=== PATIENT | male | born 1985 | race Caucasian/White ===

== ENCOUNTER 2019-06-11 16:23 | Emergency (ER) | payer SELFPAY ==
[2019-06-11] MEDS ORDERED: ONDANSETRON ODT 8 MG TAB SL ONE (17:38)
[2019-06-11] MEDS ORDERED: ALUM & MAG HYDROX-SIMETHICONE 30 ML, LIDOCAINE VISCOUS 2% 15 ML PO ONE ×2 (17:38)
[2019-06-11 18:03] VITALS: TEMP 98.4; O2SAT 97
[2019-06-11] MEDS ORDERED: LIDOCAINE HCL 2% (MOUTH-THROAT) 15 ML UD ONE (18:14)
[2019-06-11] MEDS ORDERED: ALUM & MAG HYDROX-SIMETHICONE 30 ML UD ONE (18:14)
--- NOTE | 2019-06-11 18:42 | RAD ---
EXAM DESCRIPTION: Abdomen Series CLINICAL HISTORY: 33 years Male chest pain, vomit some blood COMPARISON: None TECHNIQUE: Four images of the chest and abdomen were obtained. FINDINGS: Gas is seen throughout the bowel. Bowel is normal in caliber. Moderate constipation right colon. No intraperitoneal free air. Cardiac size is within normal limits. No infiltrates or effusions seen. No consolidation. No pneumothorax. IMPRESSION: Nonspecific bowel gas pattern. No bowel obstruction or perforation. No active cardiopulmonary disease. 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
--- NOTE | 2019-06-11 19:13 | ED.PDOC ---
History of Present Illness - General Chief Complaint: GI Problem Stated Complaint: Nausea, vomiting, weakness Time Seen by Provider: 06/11/19 17:32 Source: patient Exam Limitations: no limitations - History of Present Illness Initial Comments: the patient is a 33-year-old male presenting to the emergency room secondary to symptoms consistent with esophagitis. The patient has been having to sleep upright in a chair to reduce the wash back. Last night he started having some vomiting with some blood tinge. He has continued to have some central chest and back tightness today along with continued acid wash back. No real abdominal pain. He has had this problem for quite some time. He does also have some obesity issues and some sleep apnea. He has been poorly compliant with his sleep apnea machine. No fever. No coronary artery disease. Timing/Duration: unsure Severity: moderate Improving Factors: nothing Worsening Factors: nothing Associated Symptoms: chest pain, loss of appetite, nausea/vomiting Allergies/Adverse Reactions: Allergies Sulfa Antibiotics Adverse Reaction (Verified 06/11/19 17:45) Other Light-headed and dizziness Home Medications: Ambulatory Orders Esomeprazole Magnesium [Nexium] 40 mg PO DAILY #30 cap 06/11/19 Famotidine 20 mg PO BID #60 tab 06/11/19 Ondansetron Odt [Zofran ODT] 4 mg PO Q8HR PRN #5 tab 06/11/19 Sucralfate Tab [Carafate Tab] 1 gm PO QID #120 tab 06/11/19 Review of Systems - Review of Systems Constitutional: States: no symptoms reported EENTM: States: no symptoms reported Respiratory: States: no symptoms reported Cardiology: States: no symptoms reported Gastrointestinal/Abdominal: States: nausea, vomiting Genitourinary: States: no symptoms reported Musculoskeletal: States: no symptoms reported Skin: States: no symptoms reported Neurological: States: no symptoms reported Endocrine: States: no symptoms reported All other Systems: No Change from Baseline Past Medical History (General) - Patient Medical History Hx Stroke: No Hx Congestive Heart Failure: No Hx Diabetes: No Hx MRSA: No - Vaccination History Hx Tetanus, Diphtheria Vaccination: No Hx Influenza Vaccination: No Hx Pneumococcal Vaccination: No - Social History Hx Tobacco Use: Yes Hx Alcohol Use: Yes - Social use Hx Substance Use: No Family Medical History - Family History Father Family History: No Known Living Status: Still Living Physical Exam - Physical Exam General Appearance: Alert, No apparent distress Eye Exam: bilateral normal Ears, Nose, Throat: hearing grossly normal, normal ENT inspection Neck: full range of motion, supple Respiratory: lungs clear, normal breath sounds, no respiratory distress, no accessory muscle use Cardiovascular/Chest: normal peripheral pulses, regular rate, rhythm, no edema Peripheral Pulses: radial,right: 2+, radial,left: 2+, dorsalis pedis,right: 2+, dorsalis pedis,left: 2+ Gastrointestinal/Abdominal: non tender, soft Rectal Exam: deferred Back Exam: no CVA tenderness, no vertebral tenderness Extremity: normal range of motion, non-tender, normal inspection, no pedal edema, normal capillary refill 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 The patient is going to be placed on Pepcid, Carafate and Nexium for extended course. He will also be written for some Zofran to control any vomiting. He needs to lose weight and stop smoking. Dietary precautions were also given. He also needs to rig supervisor some [id number] Maalox or Mylanta for as needed use. EKG, xray and lab work are reassuring. follow-up with primary care doctor in a week or 2. ER warnings were given. melisa sethi [id number] - Results/Orders Results/Orders: Vital Signs - 24 hr 06/11/19 17:32 Temperature 98.4 F Pulse Rate [ 106 H Left Radial] Respiratory 22 Rate Blood Pressure 146/103 [Right Arm] O2 Sat by Pulse 97 Oximetry 06/11/19 17:45 EKG STAT normal sinus rhythm 96 bpm. Oral axis. Possibly early right bundle branch block. Otherwise normal R-wave progression. No ST segment or T-wave changes indicative of acute ischemia. Normal QT interval. Mild left atrial dilation. Acute abdominal series showed no definitive acute pathology. He does have mild constipation. See report for details. Laboratory Results - last 24 hr 06/11/19 06/11/19 06/11/19 17:50 17:50 17:50 WBC 12.2 H RBC 5.63 Hgb 16.8 Hct 49.2 MCV 87.3 MCH 29.9 MCHC 34.2 RDW 13.1 Plt Count 159 MPV 10.1 Absolute Neuts (auto) 9.30 H Absolute Lymphs (auto) 1.80 Absolute Monos (auto) 0.90 H Absolute Eos (auto) 0.10 Absolute Basos (auto) 0.00 Neutrophils % 76.4 Lymphocytes % 14.6 L Monocytes % 7.6 Eosinophils % 1.0 Basophils % 0.4 PT 9.9 INR 0.99 PTT (SP) 26.5 Sodium 139 Potassium 3.8 Chloride 106 Carbon Dioxide 26 Anion Gap 10.8 L BUN 20 H Creatinine 1.01 BUN/Creatinine Ratio 19.8 Random Glucose 96 Serum Osmolality 280.0 Calcium 9.2 Magnesium 1.9 Total Bilirubin 0.8 AST 46 H ALT 77 H Alkaline Phosphatase 63 Creatine Kinase 422 H* CK-MB (CK-2) 3.6 CK-MB (CK-2) % Not Reportable Troponin I < 0.02 B-Natriuretic Peptide < 5.0 Serum Total Protein 7.9 Albumin 4.6 Globulin 3.3 Albumin/Globulin Ratio 1.4 Amylase 53 Lipase 32 TSH 0.65 Departure - Departure Clinical Impression: Esophagitis Disposition: Discharge to Home or Self Care Condition: Fair Departure Forms: ED Discharge - Pt. Copy, Patient Portal Self Enrollment Instructions: DI for Gastritis, Thomas's Esophagus, Acid Reflux (Gastroesophageal Reflux Disease) in Adults Diet: bland diet Activity: increase activity as tolerated Prescriptions: Ondansetron Odt [Zofran ODT] 4 mg PO Q8HR PRN #5 tab PRN Reason: Nausea--Moderate Esomeprazole Magnesium [Nexium] 40 mg PO DAILY #30 cap Famotidine 20 mg PO BID #60 tab Sucralfate Tab [Carafate Tab] 1 gm PO QID #120 tab Home Medications: Ambulatory Orders Esomeprazole Magnesium [Nexium] 40 mg PO DAILY #30 cap 06/11/19 Famotidine 20 mg PO BID #60 tab 06/11/19 Ondansetron Odt [Zofran ODT] 4 mg PO Q8HR PRN #5 tab 06/11/19 Sucralfate Tab [Carafate Tab] 1 gm PO QID #120 tab 06/11/19 Additional Instructions: the patient is a 33-year-old male presenting with what appears to be significant long-standing esophagitis. The patient is going to be placed on Pepcid, Carafate and Nexium for extended course. He will also be written for some Zofran to control any vomiting. He needs to lose weight and stop smoking. Dietary precautions were also given. He also needs to rig supervisor some [id number] Maalox or Mylanta for as needed use. EKG, xray and lab work are reassuring. follow-up with primary care doctor in a week or 2. ER warnings were given.
[2019-06-11 19:35] VITALS: BP 111/72
== END 2019-06-11 19:28 | disposition home or self-care (01) ==
LOC: ER 16:23
DX: K20.9 Esophagitis, unspecified (principal); R11.2 Nausea with vomiting, unspecified; R07.9 Chest pain, unspecified; E66.9 Obesity, unspecified; F17.200 Nicotine dependence, unspecified, uncomplicated; Z88.2 Allergy status to sulfonamides; Z68.42 Body mass index [BMI] 45.0-49.9, adult

== ENCOUNTER 2019-07-14 17:09 | Emergency (ER) | payer SELFPAY ==
[2019-07-14 18:34] VITALS: TEMP 96
--- NOTE | 2019-07-14 18:53 | ED.PDOC ---
History of Present Illness - General Chief Complaint: Syncope/Near Syncope Stated Complaint: fainted earlier today,dizziness Time Seen by Provider: 07/14/19 18:45 Source: patient, RN notes reviewed, Vital Signs reviewed Exam Limitations: no limitations - History of Present Illness Initial Comments: Pt is a 33 yo male that presents after syncopal episode. States he has had acid reflux all day and while at work at 1530 today he was dry heaving and passed out. Denies hitting head or any injury. Has felt fatigued since the episode and continues to have burning epigastic pain. Reports chronic acid reflux and takes PPI daily at home for this. Denies fever, cough, CP, SOB. Allergies/Adverse Reactions: Allergies Sulfa Antibiotics Adverse Reaction (Verified 06/11/19 17:45) Other Light-headed and dizziness Home Medications: Ambulatory Orders Esomeprazole Magnesium [Nexium] 40 mg PO DAILY #30 cap 06/11/19 Famotidine 20 mg PO BID #60 tab 06/11/19 Ondansetron Odt [Zofran ODT] 4 mg PO Q8HR PRN #5 tab 06/11/19 Sucralfate Tab [Carafate Tab] 1 gm PO QID #120 tab 06/11/19 Review of Systems - Review of Systems Constitutional: Denies: chills, fever, weakness EENTM: Denies: ear pain, nose congestion, throat pain Respiratory: Denies: cough, short of breath Cardiology: States: syncope. Denies: chest pain, edema, palpitations Gastrointestinal/Abdominal: States: abdominal pain, nausea, vomiting. Denies: diarrhea Genitourinary: States: no symptoms reported Musculoskeletal: States: no symptoms reported Neurological: Denies: headache, paresthesia, seizure, tremors, weakness Endocrine: States: no symptoms reported Hematologic/Lymphatic: States: no symptoms reported All other Systems: Reviewed and Negative Past Medical History (General) - Patient Medical History Hx Stroke: No Hx Congestive Heart Failure: No Hx Diabetes: No Hx Gastroesophageal Reflux: Yes Hx MRSA: No Surgical History: no surgical history - Vaccination History Hx Tetanus, Diphtheria Vaccination: No Hx Influenza Vaccination: Yes Hx Pneumococcal Vaccination: No - Social History Hx Tobacco Use: Yes Hx Alcohol Use: Yes - Social use Hx Substance Use: No Family Medical History - Family History Father Family History: No Known Living Status: Still Living Physical Exam - Physical Exam General Appearance: Alert, Comfortable, No apparent distress, Well Developed, Well Hydrated Eye Exam: bilateral normal - PERRL Ears, Nose, Throat: normal pharynx Neck: non-tender, full range of motion, supple, other - No C, T, L spine tenderness on exam Respiratory: chest non-tender, lungs clear, normal breath sounds, no respiratory distress, no accessory muscle use Cardiovascular/Chest: regular rate, rhythm, no edema, no murmur Gastrointestinal/Abdominal: soft, other - Mild TTP epigastrium. 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 Likely due to vasovagal syncope. no deficits on neuro exam. Will check labs, EKG. Give IVF and GI cocktail and monitor in ED. 07/14/19 19:12 EKG at 1903 NSR, rate 62, nml intervals, no ST abnormality 07/14/19 20:00 Pt presents with syncope while dry heaving. Monitor, VS, labs EKG reassuring. He is asymptomatic throughout ED stay. He will continue antacids at home and f/u with pcp in 1-2 days for recheck and continued care. SRP given. - Results/Orders Results/Orders: 07/14/19 18:49 IV:Start .ONCE 07/14/19 19:00 EKG .ONCE Laboratory Results - last 24 hr 07/14/19 07/14/19 07/14/19 19:20 19:20 19:20 WBC 13.1 H RBC 5.46 Hgb 16.3 Hct 48.3 MCV 88.5 MCH 30.0 MCHC 33.9 RDW 13.3 Plt Count 167 MPV 9.8 Absolute Neuts (auto) 8.10 H Absolute Lymphs (auto) 3.90 H Absolute Monos (auto) 0.80 Absolute Eos (auto) 0.20 Absolute Basos (auto) 0.10 Neutrophils % 61.9 Lymphocytes % 29.8 Monocytes % 6.3 Eosinophils % 1.2 Basophils % 0.8 Sodium 138 Potassium 3.8 Chloride 101 Carbon Dioxide 26 Anion Gap 14.8 BUN 21 H Creatinine 1.00 BUN/Creatinine Ratio 21.0 H Random Glucose 85 Serum Osmolality 277.9 Calcium 9.3 Total Bilirubin 0.7 AST 44 H ALT 71 H Alkaline Phosphatase 60 Troponin I < 0.02 Serum Total Protein 7.7 Albumin 4.4 Globulin 3.3 Albumin/Globulin Ratio 1.3 Lipase 33 Departure - Departure Clinical Impression: Syncope Qualifiers: Syncope type: vasovagal syncope Qualified Code(s): R55 - Syncope and collapse GERD (gastroesophageal reflux disease) Qualifiers: Esophagitis presence: esophagitis presence not specified Qualified Code(s): K21.9 - Gastro-esophageal reflux disease without esophagitis Time of Disposition: 19:59 Disposition: Discharge to Home or Self Care Condition: Good Departure Forms: ED Discharge - Pt. Copy, Patient Portal Self Enrollment Instructions: DI for Syncope in Adults (Fainting) Diet: bland diet Activity: increase activity as tolerated Home Medications: Ambulatory Orders Esomeprazole Magnesium [Nexium] 40 mg PO DAILY #30 cap 06/11/19 Famotidine 20 mg PO BID #60 tab 06/11/19 Ondansetron Odt [Zofran ODT] 4 mg PO Q8HR PRN #5 tab 06/11/19 Sucralfate Tab [Carafate Tab] 1 gm PO QID #120 tab 06/11/19
[2019-07-14] MEDS: SODIUM CHLORIDE 0.9% 1000ML 1,000 ML IVS ONE (19:52)
[2019-07-14] MEDS ORDERED: ALUM & MAG HYDROX-SIMETHICONE 30 ML UD ONE (19:53)
[2019-07-14] MEDS ORDERED: ONDANSETRON ODT 8 MG TAB ONE (19:53)
[2019-07-14] MEDS ORDERED: LIDOCAINE HCL 2% (MOUTH-THROAT) 15 ML UD ONE (19:53)
[2019-07-14] MEDS: ACETAMINOPHEN 325 MG TAB PO ONE (19:55)
[2019-07-14] MEDS: ALUM & MAG HYDROX-SIMETHICONE 30 ML, LIDOCAINE VISCOUS 2% 15 ML PO ONE ×2 (19:55)
[2019-07-14] MEDS: ONDANSETRON ODT 8 MG TAB SL ONE (19:55)
[2019-07-14] MEDS: ONDANSETRON INJ 4 MG/2 ML VIAL IV ONE (19:58)
[2019-07-14 20:07] VITALS: BP 117/86; O2SAT 98
== END 2019-07-14 20:08 | disposition home or self-care (01) ==
LOC: ER 17:09
DX: R55 Syncope and collapse (principal); K21.9 Gastro-esophageal reflux disease without esophagitis; Z87.891 Personal history of nicotine dependence; Z79.899 Other long term (current) drug therapy; Z88.2 Allergy status to sulfonamides